=== PATIENT | female | born 1995 | race Caucasian/White ===

== ENCOUNTER 2017-04-29 23:20 | Emergency (ER) | payer BC ==
[2017-04-30] MEDS ORDERED: LORazepam TAB(*) 1 MG PO ONE (00:06)
--- NOTE | 2017-04-30 00:12 | ED ---
Psychiatric Complaint - HPI Summary HPI Summary: 21F presents for mental health evaluation. Her friends are concerned that she has bipolar. She has been having racing thoughts. She denies any hallucinations. She keeps repeating relatively speaking after every question and will not give a straight answer. She states had suicidal thoughts this morning but will not elaborate on such. friends are concerned about her. She denies any drug or alcohol use. She sees someone about [facility] about mental health. She states her medications are not working. She states her therapist is concerned that she is bipolar. - History Of Current Complaint Chief Complaint: EDMentalHealth Time Seen by Provider: 04/29/17 23:38 - Allergies/Home Medications Allergies/Adverse Reactions: Allergies Allergy/AdvReac Type Severity Reaction Status Date / Time Sulfa (Sulfonamide AdvReac Intermediate Hives Verified 04/29/17 23:26 Antibiotics) PMH/Surg Hx/FS Hx/Imm Hx Endocrine/Hematology History: Denies: Hx Diabetes, Hx Systemic Lupus Erythematosus Cardiovascular History: Denies: Hx Congestive Heart Failure, Hx Hypertension, Hx Pacemaker/ICD History: Denies: Hx Renal Disease Musculoskeletal History: Denies: Hx Rheumatoid Arthritis Sensory History: Denies: Hx Hearing Aid Psychiatric History: Reports: Hx Anxiety Denies: Hx Panic Disorder - Cancer History Hx Chemotherapy: No - Surgical History Surgery Procedure, Year, and Place: WISDOM TEETH REMOVAL Infectious Disease History: No Infectious Disease History: Denies: Traveled Outside the [place] in Last 30 Days - Family History Known Family History: Positive: None - Social History Alcohol Use: None Substance Use Type: Reports: None Smoking Status (MU): Never Smoked Tobacco Review of Systems Negative: Fever Negative: Chest Pain Negative: Shortness Of Breath Positive: Anxious, Depressed All Other Systems Reviewed And Are Negative: Yes Physical Exam Triage Information Reviewed: Yes Vital Signs On Initial Exam: Initial Vitals Temp Pulse Resp BP Pulse Ox 98.2 F 88 15 153/81 98 04/29/17 23:26 04/29/17 23:26 04/29/17 23:26 04/29/17 23:26 04/29/17 23:26 Vital Signs Reviewed: Yes Appearance: Positive: Well-Appearing Skin: Positive: Warm, Dry Head/Face: Positive: Normal Head/Face Inspection Eyes: Positive: Normal, Conjunctiva Clear Respiratory/Lung Sounds: Positive: Clear to Auscultation, Breath Sounds Present Cardiovascular: Positive: Normal, RRR Abdomen Description: Positive: Nontender, Soft Bowel Sounds: Positive: Present Musculoskeletal: Positive: Normal Neurological: Positive: Normal Psychiatric: Positive: Anxious, Other - rapid thoughts Diagnostics - Vital Signs Vital Signs Temp Pulse Resp BP Pulse Ox 04/29/17 23:26 98.2 F 88 15 153/81 98 - Laboratory Lab Statement: Any lab studies that have been ordered have been reviewed, and results considered in the medical decision making process. Course/Dx - Course Course Of Treatment: 21F presents for mental health evaluation. Her friends are concerned that she has bipolar. She has been having racing thoughts. She denies any hallucinations. She keeps repeating relatively speaking after every question and will not give a straight answer. She states had suicidal thoughts this morning but will not elaborate on such. friends are concerned about her. She denies any drug or alcohol use. She sees someone about [facility] about mental health. She states her medications are not working. She states her therapist is concerned that she is bipolar. on exam has normal PE with rapid thoughts. appear anxious. medically clear for MHE. signout to dr jovel pending MHE. - Differential Dx/Clinical Impression Differential Diagnosis/HQI/PQRI: Positive: Bipolar Disorder, Depression, Suicidal Ideation Provider Diagnosis: Persistent mood [affective] disorder, unspecified Discharge - Discharge Plan Condition: Stable Disposition: OTHER Discharge Disposition Comment: signed out to dr jovel pending MHE. Referrals: Ellen Christie DO [Primary Care Provider] -
[2017-04-30 01:04] LABS: ABS Basophils 0.1 10^3/ul (0-0.2); ABS Eosinophils 0.1 10^3/ul (0-0.6); ABS Lymphocytes 1.7 10^3/ul (1.0-4.8); ABS Monocytes 0.4 10^3/ul (0-0.8); ABS Neutrophils 4.9 10^3/ul (1.5-7.7); ABS Nucleated RBC 0 10^3/ul; Hematocrit 40 % (35-47); Hemoglobin 13.7 g/dl (12.0-16.0); Lymphocyte % 23.9 % (25-47); Mean Corpuscular HGB Conc 34 g/dl (31-36); Mean Corpuscular Hemoglobin 29 pg (27-31); Mean Corpuscular Volume 84 fL (80-97); Mean Platelet Volume 8 um3 (7.4-10.4); Nucleated Red Blood Cells % 0; Platelet Count 293 10^3/ul (150-450); Red Blood Count 4.78 10^6/ul (4.0-5.4); Red Cell Distribution Width 13 % (10.5-15); White Blood Count 7.1 10^3/ul (3.5-10.8)
[2017-04-30 01:24] LABS: EGFR Non-African American 111.1 (>60)
[2017-04-30 01:51] LABS: Urine Appearance Clear; Urine Blood Negative (Negative); Urine Color Yellow; Urine Ketones Negative (Negative); Urine Protein Negative (Negative); Urine Specific Gravity 1.009 (1.010-1.030); Urine Urobilinogen Negative (Negative)
[2017-04-30 06:19] VITALS: BP 104/60
--- NOTE | 2017-04-30 06:22 | ED ---
July Lei Julia, scribed for James Man MD on 04/30/17 at 0617 . Progress - Progress Note Progress Note: Patient is signed out from PA. Johnny awaiting mental health evaluation. - Consult/PCP Time Called: 02:00 Course/Dx - Course Course Of Treatment: Patient is signed out from Johnny. Mental health operating room nurse will discharge patient. Patient will follow up with [facility] health provider. - Diagnoses Provider Diagnoses: Bipolar disorder The documentation as recorded by the July paredes Julia accurately reflects the service I personally performed and the decisions made by Magda alanis Abdul, MD.
== END 2017-04-30 06:18 ==
LOC: ED 23:20
DX: F31.9 Bipolar disorder, unspecified (principal); F34.9 Persistent mood [affective] disorder, unspecified; F41.9 Anxiety disorder, unspecified
CPT/HCPCS: 36415; 80053; 80307; 80320; 80329; 81003; 82306; 84443; 85025; 99285; A9270-GY; G0480

== ENCOUNTER 2017-05-02 16:10 | Inpatient (IN) | payer BC ==
[2017-05-02 16:54] LABS: ABS Basophils 0.1 10^3/ul (0-0.2); ABS Eosinophils 0 10^3/ul (0-0.6); ABS Lymphocytes 1.8 10^3/ul (1.0-4.8); ABS Monocytes 0.5 10^3/ul (0-0.8); ABS Neutrophils 5.3 10^3/ul (1.5-7.7); ABS Nucleated RBC 0 10^3/ul; Eosinophil % 0.5 % (0-6); Hematocrit 42 % (35-47); Hemoglobin 14.3 g/dl (12.0-16.0); Lymphocyte % 23.3 % (25-47); Mean Corpuscular HGB Conc 34 g/dl (31-36); Mean Corpuscular Hemoglobin 28 pg (27-31); Mean Corpuscular Volume 84 fL (80-97); Mean Platelet Volume 8 um3 (7.4-10.4); Nucleated Red Blood Cells % 0; Platelet Count 302 10^3/ul (150-450); Red Blood Count 5.06 10^6/ul (4.0-5.4); Red Cell Distribution Width 13 % (10.5-15); White Blood Count 7.6 10^3/ul (3.5-10.8)
[2017-05-02 17:12] LABS: EGFR Non-African American 93.2 (>60)
[2017-05-02 17:32] LABS: Urine Appearance Clear; Urine Blood Negative (Negative); Urine Color Yellow; Urine Ketones 1+ (Negative); Urine Protein Negative (Negative); Urine Specific Gravity 1.026 (1.010-1.030); Urine Urobilinogen Negative (Negative)
[2017-05-02] MEDS ORDERED: Iohexol 300* (CONTRAST) 10 ML SDV IV ONE (19:25)
--- NOTE | 2017-05-02 20:06 | RAD ---
INDICATION: Abdominal pain. COMPARISON: Comparison is made with a prior study from May 23, 2015. TECHNIQUE: A CT scan of the abdomen and pelvis was performed with intravenous and oral contrast following intravenous injection of 97 ml of Omnipaque 300 nonionic contrast. Contiguous axial sections were obtained from the lung bases through the symphysis pubis. Images were reconstructed in the coronal and sagittal planes. FINDINGS: The lung bases are clear. No pleural effusion is present. The liver and spleen are within normal limits in size without significant focal abnormality. No calcified gallstones are seen. The pancreas appears to be within normal limits in size. The kidneys and adrenal glands are normal in size. No hydronephrosis is seen. No significant focal renal abnormality is seen. The aorta is normal in caliber and demonstrates homogeneous contrast opacification. No significant enlarged retroperitoneal lymph nodes are seen. The stomach, small and large bowel appear nondistended. There is food debris present within the stomach. The appendix is within normal limits. There are several scattered diverticuli within the colon. There is no evidence for diverticulitis or colitis. The uterus is anteverted and normal in size. There is a 2.2 x 1.3 cm involuting left follicular cyst. No free intraperitoneal air or fluid is seen. No significant focal osseous abnormality is seen. IMPRESSION: 1. NO EVIDENCE FOR ACUTE FINDING OR CAUSE FOR THE PATIENT'S ABDOMINAL PAIN IS SEEN. 2. SMALL INVOLUTING LEFT OVARIAN FOLLICULAR CYST.
[2017-05-03] MEDS ORDERED: traZODone TAB* 50 MG TAB ONE (00:31)
[2017-05-03] MEDS ORDERED: Al Hydrox/Mg Hydrox/Simet LIQ* 30 ML UDC PO PRN (01:37)
[2017-05-03] MEDS ORDERED: Acetaminophen TAB* 325 MG PO PRN (01:37)
[2017-05-03] MEDS ORDERED: Citalopram TAB* 20 MG PO SCH (09:00)
[2017-05-03] MEDS: Vitamin THERAPEUTIC TAB PO SCH (10:47)
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
--- NOTE | 2017-05-03 11:56 | PN ---
MHU: Group Therapy Note - Service Type Service Type: [id number] Group Psychotherapy - Cognitive Behavioral Group Therapy ( CBT):Patient attended CBT programming this morning and presented with flat affect that did not vary with discussion. Although responsive to direct prompts to respond to questions, patient did not engage in spontaneous conversation.
--- NOTE | 2017-05-03 16:02 | ED ---
IDiandra Gabriel, scribed for Jonny Deras MD on 05/02/17 at 1945 . Progress - Progress Note Progress Note: This patient was signed out from Dr. Rosenberg, pending disposition, awaiting CT ABD /pelvis and MHE. CT ABD/Pelvis reveals 1. NO EVIDENCE FOR ACUTE FINDING OR CAUSE FOR THE PATIENT'S ABDOMINAL PAIN IS SEEN. 2. SMALL INVOLUTING LEFT OVARIAN FOLLICULAR CYST.Medically clear for MHE at 2034 Re-Evaluation - Re-Evaluation First Eval Re-Evaluation Time: 20:37 Comment: Pt now resting comfortably in bed. Pt medically clear. Pt lab work up negative. Pt CT abd/pelv negative. Pt now with some paranoid delusions regarding medical staff. I reassured pt that we are here to take care of her and will contiunue to monitor her. Pt with no acute changes. Pt to be seen and evaluated by mental health for further evaluation and treatment. Course/Dx - Course Course Of Treatment: Pt evaluated by with plan for inpatient psych placement - Diagnoses Provider Diagnoses: Suicidal ideation, Psychosis, Nandini - Provider Notifications Instructed by Provider To: Admit As Inpatient The documentation as recorded by the Diandra paredes Gabriel accurately reflects the service I personally performed and the decisions made by me, Jonny Deras MD.
[2017-05-03] MEDS: clonazePAM TAB(*) 0.5 MG PO SCH (16:37)
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
[2017-05-03] MEDS ORDERED: QUEtiapine TAB* 25 MG PO PRN (20:14)
[2017-05-03] MEDS ORDERED: traZODone TAB* 50 MG TAB PO SCH (21:00)
[2017-05-03] MEDS ORDERED: Divalproex ER TAB(*) 500 MG PO ONE (21:00)
[2017-05-03] MEDS: traZODone TAB* 100 MG PO SCH (21:10)
[2017-05-04] MEDS: Vitamin THERAPEUTIC TAB PO SCH (08:23)
[2017-05-04] MEDS: clonazePAM TAB(*) 0.5 MG PO SCH ×2 (08:23→16:03)
[2017-05-04] MEDS ORDERED: ALPRAZolam TAB* 0.5 MG PO ONE (09:00)
--- NOTE | 2017-05-04 16:08 | PN ---
Subjective - Subjective Date of Service: 05/04/17 Service Type: 38965 Hosp care 15 min low complexity Subjective: Chastity is seen in weekend coverage for Dr. Garcias. She appears anxious and somewhat guarded, but reports that her anxiety is actually less than it has been. There was apparently a med-error this morning in that she received a dose of one-time alprazolam today instead of tomorrow, when she was supposed to get it just prior to her MRI of the brain. The patient denies SI although she states "I can't help looking around this place for various ways to hurt myself. " She states that she is tolerating her medications well. Objective - Appearance Appearance: Well Developed/Nourished Dysmorphic Features: No Hygiene: Normal Grooming: Well Kept - Behavior Psychomotor Activities: Normal Exhibits Abnormal Movement: No - Attitude and Relatedness Attitude and Relatedness: Guarded Eye Contact: Fair - Speech Quality: Unpressured Latencies: Normal Quantity: Terse - Mood Patient's Decription of Mood: "Anxious" - Affect Observed Affect: Constricted Affect Consistent with: Dysphoria - Thought Process Patient's Thought Process: Coherent Thought Content: No Passive Wish, No Suicidal Planning, No Homicidal Ideation, No Paranoid Ideation - Sensorium Experiencing Hallucinations: No, Sensorium is Clear Type of Hallucinations: Visual: No, Auditory: No, Command: No - Level of Consciousness Level of Consciousness: Alert Orientation: Yes Intact, Yes Orientated to Time, Yes Orientated to Place, Yes Orientated to Person - Impulse Control Impulse Control: Tenuous - Insight and Judgement Insight and Judgement: Fair - Group Participation Particating in Group Activities: Yes - Medication Management Medication Management Adherence: Yes Assessment - Assessment Merits Inpatient Hospitalization: For Immediate Safety, For Stabilization Inpatient DSM-V Dx: F31.4 Clinical Impression: 21 y.o. 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 Plan - Plan Treatment Plan: Name: BARBI VILLALBA Birthdate: 1995 [id number] The patient is receiving treatment with a combination of clonazepam, Depakote, quetiapine and trazodone. She awaits MRI of the brain d/t history of pituitary adenoma. Continue intensive treatment on the inpatient unit. Continued Medication Management: Start Medication Medications: Current Medications Acetaminophen (Tylenol Tab*) 650 mg PO Q4H PRN PRN Reason: PAIN or TEMP > 101 F Al Hydrox/Mg Hydrox/Simethicone (Maalox Plus*) 30 ml PO Q4H PRN PRN Reason: INDIGESTION Last Admin: 05/04/17 13:45 Dose: 30 ml Clonazepam (Klonopin Tab(*)) 0.5 mg PO BID@0900,1600 [facility] Last Admin: 05/04/17 08:23 Dose: 0.5 mg Clonazepam (Klonopin Tab(*)) 0.5 mg PO BID PRN PRN Reason: agitation/anxiety Divalproex Sodium (Depakote Er Tab(*)) 750 mg PO ONCE ONE Stop: 05/04/17 21:01 Divalproex Sodium (Depakote Er Tab(*)) 1,000 mg PO BEDTIME [facility] Multivitamins (Theragran Tab*) 1 tab PO DAILY [facility] Last Admin: 05/04/17 08:23 Dose: 1 tab Quetiapine Fumarate (Seroquel Tab*) 50 mg PO BEDTIME PRN PRN Reason: insomnia Trazodone HCl (Desyrel Tab*) 100 mg PO BEDTIME [facility] Last Admin: 05/03/17 21:10 Dose: 100 mg - Discharge Plan Discharge Plan: Inpatient Hospitalization Lab Results - Lab Results Lab Results: 05/03/17 15:56 Hemoglobin A1c 5.0
[2017-05-04] MEDS ORDERED: Loperamide CAP* 2 MG PO PRN (16:49)
[2017-05-04] MEDS: traZODone TAB* 100 MG PO SCH (20:57)
[2017-05-04] MEDS ORDERED: Divalproex ER TAB(*) 250 MG PO ONE (21:00)
[2017-05-05] MEDS: Vitamin THERAPEUTIC TAB PO SCH (08:31)
[2017-05-05] MEDS: clonazePAM TAB(*) 0.5 MG PO SCH ×2 (08:32→15:46)
[2017-05-05] MEDS: traZODone TAB* 100 MG PO SCH (20:45)
[2017-05-05] MEDS: Divalproex ER TAB(*) 500 MG PO SCH (20:45)
[2017-05-06] MEDS: clonazePAM TAB(*) 0.5 MG PO SCH ×2 (08:17→19:09)
[2017-05-06] MEDS: Vitamin THERAPEUTIC TAB PO SCH (08:18)
[2017-05-06] MEDS ORDERED: LORazepam TAB(*) 1 MG PO ONE (12:04)
--- NOTE | 2017-05-06 12:11 | PN ---
Subjective - Subjective Date of Service: 05/06/17 Service Type: 55104 Hosp care 15 min low complexity Subjective: Barbi is seen, along with PA student Sweta, in coverage for Dr. Garcias. Chastity remains guarded and paranoid. According to staff she thought that a Ruperto Bear brought in by a friend had a secret camera in it. She is suspicious towards staff, feeling that they have been dishonest with her about her discharge date. I spoke with unit psychologist, Dr. Santillan, who indicates that Chastity's MMPI results were strongly correlated to psychosis and barbra. Mostly she seems paranoid and depressed on exam. She awaits MRI of the brain today due to pituitary adenoma. She endorses thoughts of self harm, stating that she' s still scanning the unit for ways of hurting herself. Objective - Appearance Appearance: Well Developed/Nourished Dysmorphic Features: No Hygiene: Normal Grooming: Well Kept - Behavior Psychomotor Activities: Normal Exhibits Abnormal Movement: No - Attitude and Relatedness Attitude and Relatedness: Guarded Eye Contact: Fair - Speech Quality: Unpressured Latencies: Normal Quantity: Appropriate - Mood Patient's Decription of Mood: "Anxious" - Affect Observed Affect: Tense Affect Consistent with: Dysphoria - Thought Process Patient's Thought Process: Coherent Thought Content: Yes Suicidal Planning, Yes Paranoid Ideation, No Passive Wish, No Homicidal Ideation - Sensorium Experiencing Hallucinations: No, Sensorium is Clear Type of Hallucinations: Visual: No, Auditory: No, Command: No - Level of Consciousness Level of Consciousness: Alert Orientation: Yes Intact, Yes Orientated to Time, Yes Orientated to Place, Yes Orientated to Person - Impulse Control Impulse Control: Poor - Insight and Judgement Insight and Judgement: Impaired - Group Participation Particating in Group Activities: Yes - Medication Management Medication Management Adherence: Yes Assessment - Assessment Merits Inpatient Hospitalization: For Immediate Safety, For Stabilization Inpatient DSM-V Dx: F31.4 Clinical Impression: 21 y.o. 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 Plan - Plan Treatment Plan: Name: BARBI VILLALBA Birthdate: 1995 [id number] The patient is receiving treatment with a combination of clonazepam, Depakote, quetiapine and trazodone. Will increase quetiapine to 100mg at night and make it scheduled. She awaits MRI of the brain d/t history of pituitary adenoma. Continue intensive treatment on the inpatient unit. Continued Medication Management: Different Medication Medications: Current Medications Acetaminophen (Tylenol Tab*) 650 mg PO Q4H PRN PRN Reason: PAIN or TEMP > 101 F Al Hydrox/Mg Hydrox/Simethicone (Maalox Plus*) 30 ml PO Q4H PRN PRN Reason: INDIGESTION Last Admin: 05/04/17 13:45 Dose: 30 ml Clonazepam (Klonopin Tab(*)) 0.5 mg PO BID@0900,1600 [facility] Last Admin: 05/06/17 08:17 Dose: 0.5 mg Clonazepam (Klonopin Tab(*)) 0.5 mg PO BID PRN PRN Reason: agitation/anxiety Divalproex Sodium (Depakote Er Tab(*)) 1,000 mg PO BEDTIME [facility] Last Admin: 05/05/17 20:45 Dose: 1,000 mg Loperamide HCl (Imodium Cap*) 2 mg PO .SEE DIRECTIONS PRN PRN Reason: DIARRHEA Last Admin: 05/04/17 17:11 Dose: 2 mg Lorazepam (Ativan Tab(*)) 2 mg PO ONCE ONE Stop: 05/06/17 12:05 Multivitamins (Theragran Tab*) 1 tab PO DAILY [facility] Last Admin: 05/06/17 08:18 Dose: 1 tab Quetiapine Fumarate (Seroquel Tab*) 100 mg PO BEDTIME [facility] Trazodone HCl (Desyrel Tab*) 100 mg PO BEDTIME [facility] Last Admin: 05/05/17 20:45 Dose: 100 mg - Discharge Plan Discharge Plan: Inpatient Hospitalization Lab Results - Lab Results Lab Results: 05/03/17 15:56 Hemoglobin A1c 5.0
[2017-05-06 13:52] LABS: EGFR Non-African American 99.1 (>60)
[2017-05-06] MEDS ORDERED: Gadoteridol* (CONTRAST) 279.3 MG/ML 10 ML IV ONE (15:52)
--- NOTE | 2017-05-06 16:44 | RAD ---
Indication: Manic psychosis, history of adenoma. Image Sequences: Sagittal and axial T1, axial T2, FLAIR, diffusion, thin section T2 and T1-weighted images of the pituitary was obtained. Dynamic coronal images were obtained during intravenous injection of 15 mL of ProHance. Comparison is made with previous exam dated November 23, 2015. Ventricular structures are midline. No midline shift is noted. The extra-axial spaces are unremarkable. There is no evidence of intracranial mass or hemorrhage. No other high or low signal lesions are noted. The postcontrast study demonstrates no evidence of abnormal enhancement. The dynamic images demonstrate an area of nonenhancement in the left pituitary consistent with a small macroadenoma. Overall this has not significantly changed in size or contour since previous exam. IMPRESSION: No intracranial lesion is identified. Small area of nonenhancement in the left side of the pituitary measuring approximately 3 mm which may represent a small adenoma and is unchanged from the previous exam.
[2017-05-06] MEDS: Divalproex ER TAB(*) 500 MG PO SCH (19:48)
[2017-05-06] MEDS: clonazePAM TAB(*) 0.5 MG PO PRN (19:49)
[2017-05-06] MEDS: traZODone TAB* 100 MG PO SCH (22:01)
[2017-05-06] MEDS: QUEtiapine TAB* 25 MG PO SCH (22:01)
[2017-05-07] MEDS: clonazePAM TAB(*) 0.5 MG PO SCH ×2 (09:05→16:53)
[2017-05-07] MEDS: Vitamin THERAPEUTIC TAB PO SCH (09:05)
--- NOTE | 2017-05-07 13:27 | PN ---
Subjective - Subjective Subjective: Psychiatric Attending progress Note: patient has been attending groups, taking notes today. review of past few days of notes reveal patient has appeared depressed, having suicidal ideation. told doctor yesterday that she looks around room looking for ways to harm self. denies active plan to act on urges at present time. Mental status X 30 minutes: patient reports that following symptoms: depressed mood, racing thoughts which result in her being internally preoccupied with "overthinking almost everything", severely distracted, thought disorgaization including tangential often irrelevant thinking, probelms remembering date, day of week, patient asked nurse yesterday about post occupancy evaluations which is the concept that architects give out questionairres to occupants of a building they design. she continues to have irrelevant thoughts. further more endorses paranoid ideation/delusions/ideas of reference and still having some degree of grandiosity regarding writing a book to share her insights with others. patient continues to have passive suicidal thoughts without intent or plan denies , insight partial. judgment: fair asked whether she would still be able to go to [facility] during spring with her family. Family was planning on leaving this Saturday. MRI of head shows microadenoma with no change in size compared with study done in 2016 patient endorses longstanding attentional deficits dating back to grade school which predated depression. 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 Will Add abilify and titrate up to 15 mg daily Panic Disorder without agoraphobia-klonopin 0.5 mg BID ADHD inattentive type- would not treat till bipolar d/o adequately stabalized. depakote level, prolactin level ordered patient should be referred to glass technician/installer on discharge here in [place] since this is where she is residing and since she does not wish to continue with her current encocrinologist
[2017-05-07] MEDS ORDERED: ARIPiprazole TAB* 5 MG PO ONE (17:41)
[2017-05-07] MEDS: Divalproex ER TAB(*) 500 MG PO SCH (21:00)
[2017-05-07] MEDS: QUEtiapine TAB* 25 MG PO SCH (21:46)
[2017-05-07] MEDS: traZODone TAB* 100 MG PO SCH (21:46)
[2017-05-08] MEDS: Vitamin THERAPEUTIC TAB PO SCH (08:18)
[2017-05-08] MEDS: clonazePAM TAB(*) 0.5 MG PO SCH ×2 (08:18→15:11)
--- NOTE | 2017-05-08 10:46 | PN ---
Assessment - Assessment Inpatient DSM-V Dx: F31.4 Plan - Plan Treatment Plan: Psychiatric Attending Progress Note patient is attending groups, and very motiavated to particpate in her own treatment. highly motvated to get well, to recover fully from this episode. patient's willingness to accept and learn how to manage her illness is quite remarkable as young adults often resist acceptance of major mental illness at first and often it takes years before full acceptance takes place. Mental Status: patient appears mildly oversedated today. with psychomotor slowing evident from her expressive and receptive speech which is slightly delayed. affect is flat with low amplitude mood: appears dysphroic. patient describes feeling anxious. She also reports having trouble concentrating, focusing, retaining and learning new information. TP: coherent and logical but deliberate and not fluent TC: continues to be preoccupied with exact day of discharge, which medications she will be on for buttermaker. Meg, seems, relieved that I recommended not returning to school but rather taking the semester off in order to recover more fully. yesterday patient continued with grandiose delusions. she told psychologist yesterday that she believes she can fly. cogntive testing yesterday revealed poor performance on digit span with multiple errors, 2/3 words retrieved after 5 minutes, long latency of response with counting backwards in 7's but scored 100 percent. patient also reports that she does not believe that with he current mental status that she would be able to perform well \ academically at [employer]. Family Meeting today went very well. shared recommendations that Meg should take off semester and return home to [place] to enroll in IOP program for 8 weeks. family and patient was receptive to this Depakote level which is 3 day trough on 1000 mg = 106 Impression: PTSD bipolar barbra with psychotic features (grandiose delusons). patient is having oversedatin from seroquel and cognitive toxicity from depakote level which is 106. probable ADHD as well patient is still meeting criteria for inpatient level of care. she is having side effects, requires further medication management due to ongoing psychotic symptoms and mood dysregulation Plan: Lower Depakote ER to 750 mg qhs Lower SEroquel to 50 mg qhs increase Abilify to 10 mg daily all other meds unchanged MMPI on saturday will need neurologistg and endocrine appointment upon returning to [place] after discharge she will also need referral to IOP in [place] Medications: Current Medications Acetaminophen (Tylenol Tab*) 650 mg PO Q4H PRN PRN Reason: PAIN or TEMP > 101 F Al Hydrox/Mg Hydrox/Simethicone (Maalox Plus*) 30 ml PO Q4H PRN PRN Reason: INDIGESTION Last Admin: 05/04/17 13:45 Dose: 30 ml Aripiprazole (Abilify Tab*) 10 mg PO DAILY@1700 [facility] Clonazepam (Klonopin Tab(*)) 0.5 mg PO BID@0900,1600 [facility] Last Admin: 05/08/17 08:18 Dose: 0.5 mg Clonazepam (Klonopin Tab(*)) 0.5 mg PO BID PRN PRN Reason: agitation/anxiety Last Admin: 05/06/17 19:49 Dose: 0.5 mg Divalproex Sodium (Depakote Er Tab(*)) 1,000 mg PO BEDTIME [facility] Last Admin: 05/07/17 21:00 Dose: 1,000 mg Loperamide HCl (Imodium Cap*) 2 mg PO .SEE DIRECTIONS PRN PRN Reason: DIARRHEA Last Admin: 05/04/17 17:11 Dose: 2 mg Multivitamins (Theragran Tab*) 1 tab PO DAILY [facility] Last Admin: 05/08/17 08:18 Dose: 1 tab Quetiapine Fumarate (Seroquel Tab*) 100 mg PO BEDTIME [facility] Last Admin: 05/07/17 21:46 Dose: 100 mg Trazodone HCl (Desyrel Tab*) 100 mg PO BEDTIME [facility] Last Admin: 05/07/17 21:46 Dose: 100 mg
--- NOTE | 2017-05-08 12:53 | PN ---
[facility]: Group Therapy Note - Service Type Service Type: [id number] Group Psychotherapy - Cognitive Behavioral Group Therapy ( CBT):Patient was attentive and participatory in CBT programming this morning, and remained in good behavioral control. Patient expressed positive insights regarding relevant treatment interventions and goals.
[2017-05-08] MEDS: ARIPiprazole TAB* 5 MG PO SCH (16:09)
[2017-05-08] MEDS: QUEtiapine TAB* 25 MG PO SCH (20:49)
[2017-05-08] MEDS: Divalproex ER TAB(*) 250 MG PO SCH (20:49)
[2017-05-08] MEDS: traZODone TAB* 100 MG PO SCH (20:49)
--- NOTE | 2017-05-08 23:20 | CONS ---
PSYCHOLOGICAL REPORT: DATE OF CONSULT: 05/07/17 DATE OF DICTATION: 05/08/17 REASON FOR REFERRAL: Meg or "Chastity" was referred for psychological testing in order to assess for presence and severity of various psychiatric symptoms including depression and possible hypomania. The patient has had significant history of major depressive disorders coupled with what sounds to be hypomanic experiences. TEST ADMINISTERED: Chastity completed the [place] Multiphasic Personality Inventory- 2 (MMPI-2). She was given feedback in individual conversation regarding testing results. BEHAVIORAL OBSERVATIONS: Chastity is a 21-year-old [employer] student, who is majoring in both government and psychology. Chastity describes aspirations of attending [employer] after graduation. Chastity has been attentive and participatory in cognitive behavioral psychotherapy groups since her admission, often initiating clinical conversation by asking questions and responding at times with challenging ideas. She impresses as having good ego strength and is empathic with peers and staff. She currently presents with various cognitive symptoms characterized by paranoid mentation as well as grandiose thoughts. For instance, regarding the latter, Chastity described to this inspector automatic typewriter in the context of individual conversation that she believed that she is able to fly and would like to devise a means to safely test her hypothesis. 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 She elaborated that diving is falling and not flying and she would prefer to fly. Upon her admission, she apparently had expressed some paranoid mentation including the belief that her pet fish was evil and was sent to harm her, so she had stopped feeding the fish. She has had periods of hypergraphia as well and describes racing thoughts at times. Historically, Chastity describes recurrent depression beginning in her high school years, but she only began being treated for mental health issues when she arrived at [facility]. She described how her parents do not believe in mental health problems and discourage her from such pursuits despite her difficulties in her high school years. What sounds to be untreated depression worsened in her senior year of high school where she experienced difficulties with dysphoria , low energy, low self- esteem and began experiencing suicidal rumination. She denies having made suicide attempts, however. More recently during the week prior to her admission, she describes difficulties with poor sleep and also becoming hyperverbal at times and experiencing increased energy characterized by impulses to swim around excessively. She has described feeling invincible and reports such grandiose delusions such as she believed that she was able to cause it to snow. Currently, Chastity describes enjoying hypomanic phase of her illness describing how it gives her good energy and makes her feel good. Discussion has addressed concerns regarding impaired insight and judgment made under such conditions with this inspector automatic typewriter again expressing concern that she may attempt to leave from a high place while experiencing the delusion that she is able to fly. Chastity was reassuring that she would only do this in safe situations and denies intends to leave from a bridge or a rhonda. TEST RESULTS: Chastity describes experiencing a fair amount of emotional duress on this administration of the MMPI-2 having elevated 2 of the 3 emotional duress scales to the point of T=95 and 97. She has a very clear right left slope on clinical indices, which is indicative of psychosis, in this case characterized by hypomania. Chastity's elevated paranoia scale (T=92) is almost matched by her endorsement on schizophrenia and hypomania scales as well (T=90) . However, she still elevates a depression scale (T=70), which appears to support historical difficulties with cycling between depression and hypomania. Although this is a somewhat low percentage diagnostic classification, it appears to be quite evident currently and historically with Chastity, who appears to have clear periods of both major depression characterized by suicidal rumination as well hypomania characterized by paranoid mentation and grandiose beliefs. IMPRESSION AND RECOMMENDATIONS: Chastity shows improvement from the time of admission to the present, but still is experiencing obvious signs of emotional dysregulation. She is able to engage in clinical discourse in an appropriate fashion, and articulates concerns about whether she is bipolar 1 or bipolar 2, with following discussion addressing how they are not necessarily mutually exclusive in that clinical impression supports a rapid cycling picture. Chastity questions utility of medications and prefers homeopathic or eastern philosophical approaches to utilization of western medicines. However, she has been compliant with recommended medications with concerns that she may become noncompliant in the outpatient context. Clinical discussion will continue to emphasize importance of utilization of both recommended medications as well as adherence to lifestyle alterations including sleep hygiene and attending continuing outpatient treatment. She does express positive insights about historical treatment at [facility], describing having had positive and helpful relationships there. She is spontaneous in conversation and expresses prosocial goals such as graduate in a timely fashion and attending law school, as well as her hopes of attending discharge in the near future so she can attend a family trip to [place]. She describes a good academic and social adjustment to [facility], despite being from [place]. Ongoing clinical interventions will continue to reinforce importance of medication compliance with discussion addressing historical identification with a pleasant experience of hypomania. [id number]/CPS #: [id number] LIZETTE
[2017-05-09] MEDS: Vitamin THERAPEUTIC TAB PO SCH (09:20)
[2017-05-09] MEDS: clonazePAM TAB(*) 0.5 MG PO SCH ×2 (09:20→16:24)
--- NOTE | 2017-05-09 11:24 | PN ---
Subjective - Subjective Subjective: Psychiatric Attending progress note: patient continues to make progress. yesterday I lowered the seroquel to 50 mg qhs and I also lowered her Depakote ER from 1000 mg to 750 mg qhs due to oversedation and cognitve impairment which was noted. also VPA Trough was high at 106. patient attended all groups. she participated and leader of one of the groups reported that patient was highly engaged, astute, focused and appropriate. no evidence of being hyperverbal, delusional, or paranoid during groups. I met separately with Meg to complete a mental status exam. patient shows some affective flattenting with diminished amplitude and range of response. speech normal volume not pressured. mild psychomotor slowing evident from speech and movements. Thought processes are coherent and goal directed no evidence of illogical or irrelevant constructs patient reports majority of her racing thoughts have remitted with an occasional stray irrelevant thought intruding into her thinking. desribes significant decrease in severity of her psychical and physical anxiety. denies hallucinations. still having some obsessional, paranoid, and grandiose thoughts but has good insight about them and they do not occupy her thinking for long period of time. examples include: has had thoughts of feeling she is capable of flying but knows that this is in reality not possible and would never attempt to jump from a high place, was upset this morning that she couldnt find her toilet articles, began obsessing that someone stole them on purpose and that maybe someone didn't want for her to brush her teeth. this lasted "longer than it should have but I eventually was able to let it go" denies suicidal ideation, intent or plan today requested I fill out a form today so that she can take her guinea pig on plane with her when she goes on family vacation to [place], [place] Impression: bipolar disorder type I most recently mixed episode PTSD rule out attention deficity hyperactivity disorder inattentive type mild Plan: continue medications unchanged will likely require further titration of abilify as patient still having psychotic symptoms. Assessment - Assessment Inpatient DSM-V Dx: F31.4
[2017-05-09] MEDS: ARIPiprazole TAB* 5 MG PO SCH (16:24)
--- NOTE | 2017-05-09 16:32 | PN ---
[facility]: Group Therapy Note - Service Type Service Type: [id number] Group Psychotherapy - Medication Education Group: Patient was attentive and participatory in group, and remained in good behavioral control. Patient expressed positive insights regarding relevant treatment interventions. Patient stated understanding of material discussed and had appropriate questions.
[2017-05-09] MEDS: QUEtiapine TAB* 25 MG PO SCH (20:24)
[2017-05-09] MEDS: Divalproex ER TAB(*) 250 MG PO SCH (20:24)
[2017-05-09] MEDS: traZODone TAB* 100 MG PO SCH (20:26)
[2017-05-10] MEDS: Vitamin THERAPEUTIC TAB PO SCH (09:00)
[2017-05-10] MEDS: clonazePAM TAB(*) 0.5 MG PO SCH ×2 (09:00→16:04)
--- NOTE | 2017-05-10 11:18 | PN ---
Subjective - Subjective Subjective: Psychiatric Attending progress note: attending groups, mood more stable, less sedated today since lowering the seroquel to 50 mg qhs and lowering Depakote ER to 750 mg QHs. Patient reports she is thinking and expressing herself with better clarity. MSE: dysphoric mood decreased range/amplitude of affect TP coherent, logical speech: not pressured, still with diminished rate with some latency in expressing self. some TC: reports still having significant distractability and intermittent irrelevant intrusive thoughts. in group today, something the manager group home said spurred an idea which she felt was very importanat to write down. she subsequently spent the next hour writing it down. no overt delusions expressed but still with intrusive and obsessional thoughts. which are somewhat grandiose. denies SI or HI denies suicidal intent or plan. insight improved judgment: intact (agrees to attend an IOP program back in [place] after discharge) Objective - Appearance Appearance: Well Developed/Nourished Dysmorphic Features: No Hygiene: Normal Grooming: Fairly Well Kept - Behavior Psychomotor Activities: Abnormal-Decreased Exhibits Abnormal Movement: No - Attitude and Relatedness Attitude and Relatedness: Cooperative Eye Contact: Good - Speech Quality: Unpressured Latencies: Normal Quantity: Appropriate - Mood Patient's Decription of Mood: "Okay" - Affect Observed Affect: Constricted Affect Consistent with: Dysphoria - Thought Process Patient's Thought Process: Over Inclusive Thought Content: Yes Paranoid Ideation, No Passive Wish, No Suicidal Planning, No Homicidal Ideation - Sensorium Experiencing Hallucinations: No, Sensorium is Clear Type of Hallucinations: Visual: No, Auditory: No, Command: No - Level of Consciousness Level of Consciousness: Alert Orientation: Yes Intact, Yes Orientated to Time, Yes Orientated to Place, Yes Orientated to Person - Insight and Judgement Insight and Judgement: Good - Group Participation Particating in Group Activities: Yes - Medication Management Medication Management Adherence: Yes Assessment - Assessment Clinical Impression: Bipolar disorder rapid cycling. most recently had manic episode which cycled into mixed episode. patient has made significant gains. paranoia, delusons have diminished considerably in severity. still having dysphoria, poor concentration , intrusive thoughts, irrelevant obsessional thinking, hypergraphia. patient will be discharged next week. discharge plan is likely going to be to an IOP program in [place]. Plan - Plan Treatment Plan: Plan: Depakote ER to 750 mg qhs SEroquel to 50 mg qhs Increase Abilify to 15 mg daily all other meds unchanged MMPI on saturday will need neurologist and endocrine appointment upon returning to [place] after discharge she will also need referral to IOP in [place] Medications: Current Medications Acetaminophen (Tylenol Tab*) 650 mg PO Q4H PRN PRN Reason: PAIN or TEMP > 101 F Al Hydrox/Mg Hydrox/Simethicone (Maalox Plus*) 30 ml PO Q4H PRN PRN Reason: INDIGESTION Last Admin: 05/04/17 13:45 Dose: 30 ml Aripiprazole (Abilify Tab*) 10 mg PO DAILY@1700 [facility] Last Admin: 05/09/17 16:24 Dose: 10 mg Clonazepam (Klonopin Tab(*)) 0.5 mg PO BID@0900,1600 [facility] Last Admin: 05/10/17 09:00 Dose: 0.5 mg Clonazepam (Klonopin Tab(*)) 0.5 mg PO BID PRN PRN Reason: agitation/anxiety Last Admin: 05/06/17 19:49 Dose: 0.5 mg Divalproex Sodium (Depakote Er Tab(*)) 750 mg PO BEDTIME [facility] Last Admin: 05/09/17 20:24 Dose: 750 mg Loperamide HCl (Imodium Cap*) 2 mg PO .SEE DIRECTIONS PRN PRN Reason: DIARRHEA Last Admin: 05/04/17 17:11 Dose: 2 mg Multivitamins (Theragran Tab*) 1 tab PO DAILY [facility] Last Admin: 05/10/17 09:00 Dose: 1 tab Quetiapine Fumarate (Seroquel Tab*) 50 mg PO BEDTIME [facility] Last Admin: 05/09/17 20:24 Dose: 50 mg Trazodone HCl (Desyrel Tab*) 100 mg PO BEDTIME [facility] Last Admin: 05/09/17 20:26 Dose: 100 mg
--- NOTE | 2017-05-10 12:00 | PN ---
MHU: Group Therapy Note - Service Type Service Type: [id number] Group Psychotherapy - Cognitive Behavioral Group Therapy ( CBT):Patient was attentive and participatory in CBT programming this morning, and remained in good behavioral control. Patient expressed positive insights regarding relevant treatment interventions and goals.
[2017-05-10] MEDS: ARIPiprazole TAB* 5 MG PO SCH (16:56)
[2017-05-10] MEDS: Divalproex ER TAB(*) 250 MG PO SCH (20:55)
[2017-05-10] MEDS: QUEtiapine TAB* 25 MG PO SCH (20:56)
[2017-05-10] MEDS: traZODone TAB* 100 MG PO SCH (20:56)
[2017-05-11] MEDS: Vitamin THERAPEUTIC TAB PO SCH (08:52)
[2017-05-11] MEDS: clonazePAM TAB(*) 0.5 MG PO SCH ×2 (08:52→16:08)
[2017-05-11] MEDS: ARIPiprazole TAB* 15 MG PO SCH (16:08)
[2017-05-11] MEDS: traZODone TAB* 100 MG PO SCH (21:17)
[2017-05-11] MEDS: QUEtiapine TAB* 25 MG PO SCH (21:17)
[2017-05-11] MEDS: Divalproex ER TAB(*) 250 MG PO SCH (21:17)
[2017-05-12] MEDS: Vitamin THERAPEUTIC TAB PO SCH (07:46)
[2017-05-12] MEDS: clonazePAM TAB(*) 0.5 MG PO SCH ×2 (07:47→16:06)
[2017-05-12] MEDS: ARIPiprazole TAB* 15 MG PO SCH (16:06)
[2017-05-12] MEDS: traZODone TAB* 100 MG PO SCH (21:18)
[2017-05-12] MEDS: QUEtiapine TAB* 25 MG PO SCH (21:18)
[2017-05-12] MEDS: Divalproex ER TAB(*) 250 MG PO SCH (21:18)
[2017-05-13] MEDS: clonazePAM TAB(*) 0.5 MG PO SCH ×2 (07:56→16:45)
[2017-05-13] MEDS: Vitamin THERAPEUTIC TAB PO SCH (07:56)
--- NOTE | 2017-05-13 13:13 | PN ---
MHU: Group Therapy Note - Service Type Service Type: [id number] Group Psychotherapy - Cognitive Behavioral Group Therapy ( CBT):Patient was attentive and participatory in CBT programming this morning, and remained in good behavioral control. Patient expressed positive insights regarding relevant treatment interventions and goals.
--- NOTE | 2017-05-13 13:44 | PN ---
Subjective - Subjective Subjective: Psychiatric attending progress note: Patient did quite well over weekend. attended groups. parents visited and found Meg to be more alert, with improved clarity of thought and noted that lethargy and "sedated look" had remitted. Famiily meeting held with director of social work, myself, Patient nad patient's father present. Meg reports she feels ready for discharge. She is sleeping 8 hours nightly without interruptions. She is looking forward to attending intensive outpatient program near her home in [place]. Father and Meg will be seeing [place] couselor to solidify details of her withdrawal from school for rest of the semester. Father and Meg were clear on understanding my recommendation for meg to complete a program in [place] and to return to [place] in Fall. If she does decide to take summer classes it was recommended that she take 1 to 2 courses and that it be at a local college near her parents. Objective - Appearance Appearance: Well Developed/Nourished Dysmorphic Features: No Hygiene: Normal Grooming: Well Kept - Behavior Psychomotor Activities: Normal Exhibits Abnormal Movement: No - Attitude and Relatedness Attitude and Relatedness: Cooperative Eye Contact: Good - Speech Quality: Unpressured Latencies: Normal Quantity: Appropriate - Mood Patient's Decription of Mood: "Good" - Affect Observed Affect: Non-labile Affect Consistent with: Euthymia - Thought Process Patient's Thought Process: Coherent Thought Content: No Passive Wish, No Suicidal Planning, No Homicidal Ideation, No Paranoid Ideation - Sensorium Experiencing Hallucinations: No, Sensorium is Clear Type of Hallucinations: Visual: No, Auditory: No, Command: No - Level of Consciousness Level of Consciousness: Alert Orientation: Yes Intact, Yes Orientated to Time, Yes Orientated to Place, Yes Orientated to Person - Impulse Control Impulse Control: Intact - Insight and Judgement Insight and Judgement: Good - Group Participation Particating in Group Activities: Yes - Medication Management Medication Management Adherence: Yes Assessment - Assessment Clinical Impression: Bipolar disorder rapid cycling. most recently had manic episode which cycled into mixed episode. patient has made significant gains. paranoia, delusons have remitted and patient's mood stable and close to euthymic. she is ready for discharge which will be tomorrow Plan - Plan Treatment Plan: Plan: Discharge tomorrow at noon f/u with school couselor on 05/15/2017 returning home to [place] 05/10/2017 Father will take care of scheduling patient to see river boat captain for f/u of adenoma. f/u at [facility] in [place] area to be arranged by director of social work Medications: Current Medications Acetaminophen (Tylenol Tab*) 650 mg PO Q4H PRN PRN Reason: PAIN or TEMP > 101 F Last Admin: 05/12/17 11:44 Dose: 650 mg Al Hydrox/Mg Hydrox/Simethicone (Maalox Plus*) 30 ml PO Q4H PRN PRN Reason: INDIGESTION Last Admin: 05/04/17 13:45 Dose: 30 ml Aripiprazole (Abilify Tab*) 15 mg PO DAILY@17 [facility] Last Admin: 05/12/17 16:06 Dose: 15 mg Clonazepam (Klonopin Tab(*)) 0.5 mg PO BID@0900,1600 [facility] Last Admin: 05/13/17 07:56 Dose: 0.5 mg Clonazepam (Klonopin Tab(*)) 0.5 mg PO BID PRN PRN Reason: agitation/anxiety Last Admin: 05/06/17 19:49 Dose: 0.5 mg Divalproex Sodium (Depakote Er Tab(*)) 750 mg PO BEDTIME [facility] Last Admin: 05/12/17 21:18 Dose: 750 mg Loperamide HCl (Imodium Cap*) 2 mg PO .SEE DIRECTIONS PRN PRN Reason: DIARRHEA Last Admin: 05/04/17 17:11 Dose: 2 mg Multivitamins (Theragran Tab*) [address] [facility] Last Admin: 05/13/17 07:56 Dose: 1 tab Quetiapine Fumarate (Seroquel Tab*) 50 mg PO BEDTIME [facility] Last Admin: 05/12/17 21:18 Dose: 50 mg Trazodone HCl (Desyrel Tab*) 100 mg PO BEDTIME [facility] Last Admin: 05/12/17 21:18 Dose: 100 mg
[2017-05-13] MEDS: ARIPiprazole TAB* 15 MG PO SCH (16:44)
[2017-05-13] MEDS: clonazePAM TAB(*) 0.5 MG PO PRN (19:13)
[2017-05-13] MEDS: Divalproex ER TAB(*) 250 MG PO SCH (20:40)
[2017-05-13] MEDS: traZODone TAB* 100 MG PO SCH (20:40)
[2017-05-13] MEDS: QUEtiapine TAB* 25 MG PO SCH (20:40)
[2017-05-14] MEDS: Vitamin THERAPEUTIC TAB PO SCH (07:54)
[2017-05-14] MEDS: clonazePAM TAB(*) 0.5 MG PO SCH (07:54)
[2017-05-14 07:55] VITALS: BP 102/49
--- NOTE | 2017-05-14 14:24 | DCNOTE ---
DC Assessment - Assessment Clinical Impression: Bipolar disorder rapid cycling. most recently had manic episode which cycled into mixed episode. patient has made significant gains. paranoia, delusons have remitted and patient's mood stable and close to euthymic. she is ready for discharge which will be tomorrow Inpatient DSM-V Dx: F31.4 Discharge Planning - Discharge Planning Discharge Planning: Prescriptions provided for discharge [] Yes [] No Follow up care details as per social work arrangements. Patient response to discharge plan: [] eager for discharge [] agreeable with discharge plan [] ambivalent about discharge [] disagrees with discharge today
== END 2017-05-14 12:15 | disposition home or self-care (01) | DRG 753 ==
LOC: ED 16:10 → BSU 22:46
PROVIDERS: ADMIT Psychiatry & Neurology Psychiatry; ATTEND Psychiatry & Neurology Psychiatry
DX: F31.4 Bipolar disorder, current episode depressed, severe, without psychotic features (principal); R45.851 Suicidal ideations; D36.7 Benign neoplasm of other specified sites; F43.10 Post-traumatic stress disorder, unspecified; F41.0 Panic disorder [episodic paroxysmal anxiety]; Z81.8 Family history of other mental and behavioral disorders; Z88.2 Allergy status to sulfonamides; Z79.899 Other long term (current) drug therapy
CPT/HCPCS: 36415; 70553; 74177; 80048; 80053; 80061; 80164; 80307; 80320; 80329; 81003; 82024; 83001; 83002; 83003; 83036; 84146; 84443; 85025; 90853; 96102; 99222; 99231; 99232; 99238; 99285; A9270-GY; A9579; G0480; Q9967